=== PATIENT | male | born 1965 | race Caucasian/White ===

== ENCOUNTER 2017-11-18 17:28 | Observation (INO) ==
[~2017-11-18 17:28] MED LIST: KETOROLAC 30 MG/1 ML VIAL IV PRN
[2017-11-18] MEDS ORDERED: ONDANSETRON 4 MG/2 ML VIAL IV STA (20:05)
[2017-11-18] MEDS ORDERED: MORPHINE 2 MG/1 ML SYRINGE IV STA (20:06)
[2017-11-18] MEDS ORDERED: ONDANSETRON 4 MG/2 ML VIAL ONE (20:08)
[2017-11-18] MEDS ORDERED: MORPHINE 10 MG/1 ML VIAL ONE ×2 (20:09→21:36)
[2017-11-18] MEDS ORDERED: KETOROLAC 30 MG/1 ML VIAL ONE (20:10)
[2017-11-18] MEDS ORDERED: DEXAMETHASONE 4 MG/1 ML VIAL ONE (20:10)
[2017-11-18 20:13] LABS: Basophils # 0.1 10*3/uL (0.0-0.2); Basophils % 0.9 % (0.0-0.8); Eosinophils # 0.1 10*3/uL (0.0-0.87); Eosinophils % 1.7 % (0.00-10.9); Hematocrit 45.4 VOL% (42.0-52.0); Hemoglobin 14.9 GM/DL (14.0-18.0); Immature Granulocytes % 0.5 %; Immature Granulocytes Absolute 0.04 #; Lymphocytes # 2.5 10*3/uL (1.4-4.0); Lymphocytes % 31.6 % (21.2-54.2); Mean Corpuscular HGB Conc 32.8 GM/DL (32-36); Mean Corpuscular Hemoglobin 31 PG (27-34); Mean Corpuscular Volume 94.6 FL (87-102); Mean Platelet Volume 9.9 FL (9.6-12.0); Monocytes # 0.6 10*3/uL (0.11-0.8); Monocytes % 7.8 % (1.7-12.7); Neutrophils # 4.6 10*3/uL (1.4-7.4); Neutrophils % 57.5 % (38.7-73.9); Platelet Count 299 T/CUMM (130-400); Red Cell Distribution Width 13.2 % (9.3-17.3)
[2017-11-18] MEDS ORDERED: IBUPROFEN 600 MG TABLET PO PRN (20:38)
[2017-11-18] MEDS ORDERED: ONDANSETRON 4 MG/2 ML VIAL IV PRN (20:38)
[2017-11-18] MEDS ORDERED: NALOXONE 0.4 MG/ML VIAL IV PRN (20:38)
[2017-11-18] MEDS ORDERED: ACETAMINOPHEN 325 MG TABLET PO PRN (20:38)
[2017-11-18] MEDS ORDERED: MORPHINE 2 MG/1 ML SYRINGE IV PRN (20:38)
[2017-11-18] MEDS ORDERED: oxyCODONE/ACETAMINOPHEN 5-325 MG TABLET PO PRN (20:38)
[2017-11-18 20:46] LABS: Alanine Aminotransferase 37 U/L (16-61); Albumin 4.2 G/DL (3.4-5.0); Alkaline Phosphatase 41 U/L (45-117); Aspartate Amino Transferase 23 U/L (0-37); Bilirubin,Total < 0.39 MG/DL (0.2-1.0); Blood Urea Nitrogen 14 MG/DL (7-18); Calcium 9.1 MG/DL (8.5-10.1); Glucose 90 MG/DL (74-106); Osmolality,Calculated 277.5 MOS/KG (273-304); Potassium 4.3 MMOL/L (3.5-5.1); Sodium 139 MMOL/L (136-145); Total Protein 7.7 G/DL (6.4-8.3)
[2017-11-18] MEDS ORDERED: APIXABAN 5 MG TABLET ONE (21:35)
[2017-11-18] MEDS ORDERED: DOCUSATE SODIUM 100 MG CAPSULE ONE (21:35)
[2017-11-18] MEDS: DOCUSATE SODIUM 100 MG CAPSULE PO SCH (21:41)
[2017-11-18] MEDS: APIXABAN 5 MG TABLET PO SCH (21:41)
[2017-11-19 05:25] LABS: Basophils % 0.6 % (0.0-0.8); Eosinophils # 0.2 10*3/uL (0.0-0.87); Eosinophils % 2.2 % (0.00-10.9); Hematocrit 41.6 VOL% (42.0-52.0); Hemoglobin 13.6 GM/DL (14.0-18.0); Immature Granulocytes % 0.4 %; Immature Granulocytes Absolute 0.03 #; Lymphocytes % 28.9 % (21.2-54.2); Mean Corpuscular HGB Conc 32.7 GM/DL (32-36); Mean Corpuscular Hemoglobin 31 PG (27-34); Mean Corpuscular Volume 94.3 FL (87-102); Mean Platelet Volume 9.9 FL (9.6-12.0); Monocytes # 0.7 10*3/uL (0.11-0.8); Monocytes % 10.5 % (1.7-12.7); Neutrophils % 57.4 % (38.7-73.9); Platelet Count 265 T/CUMM (130-400); Red Blood Count 4.41 MC/CUMM (3.8-5.5); Red Cell Distribution Width 13.2 % (9.3-17.3); White Blood Count 6.9 T/CUMM (4-12)
[2017-11-19 06:01] LABS: Calcium 8.6 MG/DL (8.5-10.1); Osmolality,Calculated 283.1 MOS/KG (273-304); Risk Ratio 5.59; VLDL CHOLESTEROL 33.6 MG/DL
[2017-11-19 06:09] LABS: PT Patient Result 10.7 SECS; Partial Thromboplastin Time 29.1 SECS (0-40)
[2017-11-19] MEDS ORDERED: PANTOPRAZOLE 40 MG TABLET PO SCH (09:00)
[2017-11-19] MEDS: APIXABAN 5 MG TABLET PO SCH (09:21)
[2017-11-19] MEDS: DOCUSATE SODIUM 100 MG CAPSULE PO SCH (09:21)
[2017-11-19 10:57] VITALS: BP 111/66
[2017-11-23 12:01] LABS: Protein C Antigen 114 % (70-150)
[2017-11-23 16:25] LABS: F5DNA Reviewed By SEE COMMENTS; Factor V Leiden (R506Q) Mutati Negative (Negative)
== END 2017-11-19 11:30 | disposition home or self-care (01) | DRG 301 ==
LOC: N.ED 17:28 → N.EDINP 20:38 → INTOOBSV 20:38 → N.TELES 22:19
PROVIDERS: ADMIT Internal Medicine; ATTEND Internal Medicine